=== PATIENT | male | born 1995 | race American Indian/Alaskan Native ===

== ENCOUNTER 2016-07-29 23:03 | Emergency (ER) | payer BC ==
[2016-07-29 23:04] VITALS: BMI 20.2
[2016-07-29 23:30] VITALS: BP 118/76; PULSE 67; RESP 18; TEMP 98.4; O2SAT 100
[2016-07-29] MEDS ORDERED: Tobramycin 0.3% OPH OINT OU STA (23:52)
[2016-07-30] MEDS ORDERED: Tobramycin 0.3% OPH OINT ONE (00:08)
--- NOTE | 2016-07-30 00:09 | C.PDOC ---
History Of Present Illness 21 y/o male presents to ED with complaint of stye to the right eye since Tuesday (3 days ago). Patient reports associated purulent discharge. Denies changes in vision. Pt states he has been applying warm compresses and boric acid to the area. Otherwise, denies headache, fever, chills, or other assoc sx. Time Seen by Provider: 07/29/16 23:29 Chief Complaint (Nursing): ENT Problem History Per: Patient History/Exam Limitations: no limitations Onset/Duration Of Symptoms: Days Current Symptoms Are (Timing): Still Present Injury To Eye?: No Quality: "Pain" Wears Contact Lens?: No Associated Symptoms: Pain, Swelling, Discharge From Eye. denies: FB Sensation Recent travel outside of the [place]: No Past Medical History Reviewed: Historical Data, Nursing Documentation, Vital Signs Vital Signs: Last Vital Signs Temp 98.4 F 07/29/16 23:27 Pulse 67 07/29/16 23:27 Resp 18 07/29/16 23:27 BP 118/76 07/29/16 23:27 Pulse Ox 100 07/30/16 00:50 - Medical History PMH: Ast[facility] INJECT/INFUSE ELECTROLYT (04/14/12) INJECT/INFUSE NEC (01/22/14) Family History: States: Unknown Family Hx - Social History Hx Tobacco Use: No Hx Alcohol Use: Yes Hx Substance Use: Yes (marijuana) - Immunization History Hx Tetanus Toxoid Vaccination: No Hx Influenza Vaccination: No Hx Pneumococcal Vaccination: No Review Of Systems Except As Marked, All Systems Reviewed And Found Negative. Constitutional: Negative for: Fever, Chills Eyes: Positive for: Pain, Eyelid Inflammation. Negative for: Vision Change, Redness ENT: Negative for: Ear Pain, Nose Discharge, Nose Congestion, Throat Pain Respiratory: Negative for: Cough Gastrointestinal: Negative for: Nausea, Vomiting Skin: Negative for: Rash Physical Exam - Physical Exam Appears: Non-toxic, No Acute Distress Skin: Normal Color, Warm, Dry Head: Atraumatic, Normacephalic Eye(s): bilateral: PERRL, EOMI, right: Other (Erythema, tenderness, swelling to right upper eyelid with pointing at lid margin. No injection or purulent discharge. ), left: Normal Inspection Nose: Normal Oral Mucosa: Moist Throat: Normal, No Erythema, No Exudate, No Drooling Neck: Normal ROM, Supple Chest: Symmetrical Respiratory: No Accessory Muscle Use Neurological/Psych: Oriented x3, Normal Speech, Normal Cognition ED Course And Treatment O2 Sat by Pulse Oximetry: 100 (RA) Pulse Ox Interpretation: Normal Progress Note: Treated with Tobramycin. On reassessment, patient is resting comfortably, and is in no acute distress. Advised to apply eyedrops as directed and to continue using warm compresses. Patient instructed to follow up with air grinder within 1-2 days. Disposition - Disposition Referrals: Steve Robles MD [Staff Provider] - Disposition: HOME/ ROUTINE Disposition Time: 23:30 Condition: STABLE Additional Instructions: Warm compresses. Follow up with eye doctor in 1-2 days. Return to ER if symptoms persist or worsen. Prescriptions: Tobramycin 0.3% [Tobramycin 5 Ml] 1 drop OP Q4 #1 bottle Instructions: Stef (ED) - Clinical Impression Clinical Impression: Hordeolum externum (stye) - PA / [employer] / Resident Statement MD/DO has reviewed & agrees with the documentation as recorded. - Scribe Statement The provider has reviewed the documentation as recorded by the Scribe Anthony Freed All medical record entries made by the Aminata were at my direction and personally dictated by me. I have reviewed the chart and agree that the record accurately reflects my personal performance of the history, physical exam, medical decision making, and the department course for this patient. I have also personally directed, reviewed, and agree with the discharge instructions and disposition.
== END 2016-07-30 00:15 | disposition home or self-care (01) ==
LOC: C.ER 23:03
DX: H00.011 Hordeolum externum right upper eyelid (principal)